=== PATIENT | female | born 1945 | race Two or more races ===

== ENCOUNTER → 2020-04-12 06:00 | Outpatient (CLI) | payer OTHER | END | disposition home or self-care (01) | LOC: ADM 04-08 11:45 → AMB-ENDOS 04-10 11:45 → LAB 06:00 → AMB-ENDOS 04-17 11:45 → EDSTATUS 05-01 11:45 | PROVIDERS: ATTEND Colon & Rectal Surgery | DX: D12.5 Benign neoplasm of sigmoid colon (principal); Z01.812 Encounter for preprocedural laboratory examination; Z20.828 Contact with and (suspected) exposure to other viral communicable diseases; Z86.010 Personal history of colon polyps; D12.3 Benign neoplasm of transverse colon ==